=== PATIENT | male | born 1995 | race Caucasian/White ===

== ENCOUNTER 2021-09-02 17:18 | Emergency (ER) | payer OTHER ==
[~2021-09-02] VITALS: Ht 180.3 cm; Wt 85.3 kg
[2021-09-02 17:20] VITALS: BP 132/80
[2021-09-02] MEDS ORDERED: LID5T TP (18:00)
[2021-09-02] MEDS ORDERED: IBUP-2213 PO (18:00)
[2021-09-02] MEDS ORDERED: CYCL-711 PO (18:00)
--- NOTE | 2021-09-02 18:06 | NUR ---
PT C/O LOW BACK PAIN S/P FALL TODAY. DENIES LOC.
[2021-09-02] MEDS: KETOROLAC 30 MG/ML VIAL IM ONE (18:22)
--- NOTE | 2021-09-02 18:46 | NUR ---
Patient discharged with v/s stable. Written and verbal after care instructions ABOUT LUMBAR STRAIN given and explained. Patient alert, oriented and verbalized understanding of instructions. Ambulatory with steady gait. All questions addressed prior to discharge. ID band removed. Patient advised to follow up with PMD. Rx of FLEXERIL, IBUPROFEN, LIDODERM 5% given. Patient educated on indication of medication including possible reaction and side effects. Opportunity to ask questions provided and answered.
== END 2021-09-02 19:44 | disposition home or self-care (01) ==
LOC: MED 17:18
DX: S39.012A Strain of muscle, fascia and tendon of lower back, initial encounter (principal); R03.0 Elevated blood-pressure reading, without diagnosis of hypertension; X58.XXXA Exposure to other specified factors, initial encounter; Y93.89 Activity, other specified; Y92.89 Other specified places as the place of occurrence of the external cause; Y99.8 Other external cause status
CPT/HCPCS: 72100; 96372; 99283; J1885

== ENCOUNTER 2022-05-31 09:32 | Day surgery (SDC) | payer OTHER ==
[~2022-05-31] VITALS: Ht 177.8 cm; Wt 86.2 kg
[~2022-05-31 09:32] MED LIST: CYCL-711 PO; IBUP-2213 PO; LID5T TP
[2022-05-31] MEDS ORDERED: fentaNYL citrate 0.05 MG/ML VIAL ONE (10:39)
[2022-05-31] MEDS ORDERED: MIDAZOLAM 5 MG/5 ML VIAL ONE (10:39)
[2022-05-31] MEDS ORDERED: MIDAZOLAM 2 MG/2 ML VIAL IVP ONE (13:55)
== END 2022-05-31 12:55 | disposition home or self-care (01) ==
LOC: MDS 09:32 → MMU 09:33 → MDS 12:55
PROVIDERS: ATTEND Internal Medicine Gastroenterology
DX: K21.9 Gastro-esophageal reflux disease without esophagitis (principal); F90.9 Attention-deficit hyperactivity disorder, unspecified type; Z79.899 Other long term (current) drug therapy; Z20.822 Contact with and (suspected) exposure to COVID-19
CPT/HCPCS: 43235; 87426; J2250; J3010